=== PATIENT | female | born 2000 | race Caucasian/White ===

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

== ENCOUNTER 2019-04-20 11:51 | Emergency (ER) | payer MEDICAID, OTHER ==
[~2019-04-20] VITALS: Ht 160 cm; Wt 85.1 kg
[~2019-04-20 11:51] MED LIST: IBUP-1561 PO; PRED20TA PO
[2019-04-20 11:54] VITALS: BP 117/67; PULSE 65; RESP 20; Ht 160 cm; Wt 85.1 kg
[2019-04-20] MEDS ORDERED: ONDANSETRON (ODT) 4 MG TAB ODT STA (13:42)
[2019-04-20] MEDS ORDERED: KETOROLAC 60 MG INJ IM STA (13:42)
[2019-04-20] MEDS ORDERED: ONDA4TAB14 PO (14:30)
[2019-04-20] MEDS ORDERED: IBUP-1542 PO (14:30)
--- NOTE | 2019-04-20 14:35 | ERD ---
ER Documentation Chief Complaint Chief Complaint migraine headache x2days HPI 19-year-old female patient with past medical history of tuberculosis presents to the ED complaining of a headache that started 2 days ago. Patient describes her pain as achy, diffusely on the top of her head, started gradually 2 days ago. States that her last menstruation was sometime last month. That she has some photophobia and phonophobia. Denies any head or neck injuries. Denies any dizziness, vomiting, diarrhea, chest pain, shortness of breath. Rates her pain a 7 out of 10. Reports that she has not taking any medications. ROS All systems reviewed and are negative except as per history of present illness. Medications Home Meds Active Scripts Ondansetron (Ondansetron Odt) 4 Mg Tab.rapdis, 4 MG PO Q6H PRN for NAUSEA AND/OR VOMITING, #10 TAB Prov:CINTHIA HORVATH PA-C 04/20/19 Ibuprofen* (Motrin*) 600 Mg Tab, 600 MG PO Q6, #30 TAB Prov:CINTHIA HORVATH PA-C 04/20/19 Ibuprofen* (Motrin*) 400 Mg Tab, 400 MG PO Q6, #30 TAB Prov:JANAE JACKSON NP 07/26/17 Prednisone* (Prednisone*) 20 Mg Tab, 40 MG PO DAILY for 4 Days, TAB Prov:JANAE JACKSON NP 07/26/17 Allergies Allergies: Coded Allergies: No Known Allergy (Unverified , 04/20/19) PMhx/Soc Medical and Surgical Hx: pt denies Surgical Hx Hx Miscellaneous Medical Probl: Yes ((+) TB test-completed tx course) Hx Alcohol Use: Yes (occasional) Hx Substance Use: No Hx Tobacco Use: No Smoking Status: Never smoker FmHx Family History: No diabetes, No coronary disease Physical Exam Vitals Vital Signs Date Temp Pulse Resp B/P (MAP) Pulse Ox O2 O2 Flow FiO2 Time Delivery Rate 04/20/19 99.0 65 20 117/67 96 11:54 (84) Physical Exam Const: [id number], well-nourished. In no acute distress. Head: Atraumatic, normocephalic. No raccoon eyes. No hematoma. No munoz sign. Eyes: Normal Conjunctiva without injection. No purulent discharge. PERRLA. EOMI ENT: Normal external ear. Ear canal without erythema. Tympanic membrane pearly nolasco without effusion or bulging. No hemotympanum. Nasal canal clear with normal turbinates. Moist oropharynx without tonsillar exudates. Non-erythematous pharynx. Uvula midline. No drooling. No trismus. Neck: No cervical midline tenderness. Full range of motion. No meningismus. No cervical lymphadenopathy. No JVD. Resp: Clear to auscultation bilaterally. No wheezing, rhonchi, rales, or crackles. No accessory muscle use. No retractions. Cardio: Regular rate and rhythm. No murmurs, rubs or gallops. Abd: Soft, non tender, non distended. Normal bowel sounds. No palpable masses. No rebound tenderness. No guarding. Negative McBurney's Point. Negative Bee's Sign. Skin: Normal skin turgor. No petechiae or rashes Back: No midline tenderness. No CVA tenderness. Ext: No cyanosis, or edema. Distal pulses intact bilaterally. Neur: Awake and alert. Normal gait. Normal coordination. Cranial Nerves II- VII intact. Normal finger to nose. Muscle strength 5/5. Sensation intact. Psych: Normal Mood and Affect Results 24 hrs Laboratory Tests Test 04/20/19 13:52 POC Beta HCG, Qualitative NEGATIVE Current Medications Medications Dose Sig/Sabra Start Time Status Last (Trade) Ordered Route PRN Stop Time Admin Dose Reason Admin Ketorolac 60 mg ONCE STAT 04/20/19 DC 04/20/19 Tromethamine IM 13:42 14:03 (Toradol) 04/20/19 13:44 Ondansetron 4 mg ONCE STAT 04/20/19 DC 04/20/19 HCl (Zofran ODT 13:42 14:03 Odt) 04/20/19 13:44 Procedures/MDM 19-year-old female patient with no significant past medical history presents ED complaint of headache that started 2 days ago. Patient is afebrile and nontoxic-appearing. Differentials include migraine versus tension headache. Low suspicion for intracranial bleed, subarachnoid hemorrhage, meningitis, TIA, stroke, subdural hematoma, epidural hematoma, carotid dissection, seizures, or other emergent conditions. No indication for CT of the brain without contrast at this time. Diagnosis: Headache Discharge medications: Zofran, Ibuprofen Follow up with primary care physician in 1-2 days. Instructed patient to return to the ED sooner for any worsening symptoms. Patient's questions were answered. Patient is hemodynamically stable. Patient understood and agreed with discharge plan. Patient discharged stable. Disclaimer: Inadvertent spelling and grammatical errors are likely due to EHR/dictation software use and do not reflect on the overall quality of patient care. Also, please note that the electronic time recorded on this note does not necessarily reflect the actual time of the patient encounter. Departure Diagnosis: Primary Impression: Headache Headache type: unspecified Headache chronicity pattern: unspecified pattern Intractability: not intractable Qualified Codes: R51 - Headache Condition: Stable Patient Instructions: Headache, Unspecified Referrals: [facility] YOU HAVE RECEIVED A MEDICAL SCREENING EXAM AND THE RESULTS INDICATE THAT YOU DO NOT HAVE A CONDITION THAT REQUIRES URGENT TREATMENT IN THE EMERGENCY DEPARTMENT. FURTHER EVALUATION AND TREATMENT OF YOUR CONDITION CAN WAIT UNTIL YOU ARE SEEN IN YOUR DOCTORS OFFICE WITHIN THE NEXT 1-2 DAYS. IT IS YOUR RESPONSIBILITY TO MAKE AN APPOINTMENT FOR FOLOW-UP CARE. IF YOU HAVE A PRIMARY DOCTOR --you should call your primary doctor and schedule an appointment IF YOU DO NOT HAVE A PRIMARY DOCTOR YOU CAN CALL OUR PHYSICIAN REFERRAL HOTLINE AT IF YOU CAN NOT AFFORD TO SEE A PHYSICIAN YOU CAN CHOSE FROM THE FOLLOWING [facility] [address] [facility]. [facility] [address] [facility]. [facility] [address] [facility] [address] [facility] [place] [facility] [address] [facility]. [facility]. [address] [facility] [place] [facility]. [facility] YOU HAVE RECEIVED A MEDICAL SCREENING EXAM AND THE RESULTS INDICATE THAT YOU DO NOT HAVE A CONDITION THAT REQUIRES URGENT TREATMENT IN THE EMERGENCY DEPARTMENT. FURTHER EVALUATION AND TREATMENT OF YOUR CONDITION CAN WAIT UNTIL YOU ARE SEEN IN YOUR DOCTORS OFFICE WITHIN THE NEXT 1-2 DAYS. IT IS YOUR RESPONSIBILITY TO MAKE AN APPOINTMENT FOR FOLOW-UP CARE. IF YOU HAVE A PRIMARY DOCTOR --you should call your primary doctor and schedule and appointment IF YOU DO NOT HAVE A PRIMARY DOCTOR YOU CAN CALL OUR PHYSICIAN REFERRAL HOTLINE AT . IF YOU CAN NOT AFFORD TO SEE A PHYSICIAN YOU CAN CHOSE FROM THE FOLLOWING [facility] INSTITUTIONS: [facility] [address] [place] [address] [facility] [address] [place] [address] [facility] [address] [place] [address] [facility] URGENT CARE/SPECIALTIES Additional Instructions: Call your primary care doctor TOMORROW for an appointment during the next 2-3 days.See the doctor sooner or return here if your condition worsens before your appointment time. CINTHIA HORVATH PA-C April 20, 2019 14:35
== END 2019-04-20 14:42 | disposition home or self-care (01) ==
LOC: FTE 11:51
DX: R51 Headache (principal)
CPT/HCPCS: 81025; 96372; J1885; Z7502; Z7610